=== PATIENT | male | born 1935 | race Caucasian/White ===

== ENCOUNTER 2018-03-31 11:55 | Inpatient (IN) | payer OTHER, MEDICAID ==
[~2018-03-31] VITALS: Ht 170.2 cm; Wt 67.6 kg
[2018-03-31 11:56] VITALS: BP 146/83
[2018-03-31] MEDS ORDERED: LISI5TAB18 PO (12:15)
[2018-03-31] MEDS ORDERED: MULT1SGL58 PO (12:15)
[2018-03-31] MEDS ORDERED: ACET-2619 PO (12:15)
[2018-03-31] MEDS ORDERED: AMLO10TA PO (12:15)
[2018-03-31] MEDS ORDERED: DOCU-299 PO (12:15)
[2018-03-31] MEDS ORDERED: MAGN400S60 PO (12:15)
[2018-03-31] MEDS ORDERED: ATOR40TA PO (12:15)
[2018-03-31] MEDS ORDERED: VITB12 PO (12:15)
[2018-03-31] MEDS ORDERED: CLOP75TA55 PO (12:15)
[2018-03-31] MEDS ORDERED: NACL 0.9% 1,000 ML IV ONE (12:33)
[2018-03-31] MEDS ORDERED: VANCOMYCIN 1,000 MG in DEXTROSE 5% 250 ML IV ONE (12:35)
[2018-03-31] MEDS ORDERED: MEROPENEM 1,000 MG in NACL 0.9% 100 ML IV ONE (12:35)
[2018-03-31] MEDS ORDERED: MEROPENEM 1,000 MG VIAL IV ONE (13:39)
[2018-03-31 13:45] LABS: BASOPHILS # (AUTO) 0.1 K/uL (0.00-0.22); BASOPHILS % (AUTO) 0.4 % (0.0-2.0); EOSINOPHILS % (AUTO) 0.1 % (0.0-4.0); HEMATOCRIT 49.1 % (36-52); HEMOGLOBIN 16.1 g/dL (12.0-18.0); LYMPHOCYTES # (AUTO) 0.9 K/uL (2.0-11.5); LYMPHOCYTES % (AUTO) 6.5 % (20.5-51.1); MEAN CORPUSCULAR HEMOGLOBIN 30 pg (27-31); MEAN CORPUSCULAR HGB CONC 33 g/dL (33-37); MEAN CORPUSCULAR VOLUME 90.5 fL (80-94); MONOCYTES # (AUTO) 1.4 K/uL (0.8-1.0); MONOCYTES % (AUTO) 9.5 % (1.7-9.3); NEUTROPHILS # (AUTO) 12.1 K/uL (1.8-7.7); NEUTROPHILS % (AUTO) 83.5 % (42.2-75.2); PLATELET COUNT (AUTO) 221 K/uL (140-450); RED BLOOD CELL COUNT(AUTO) 5.42 MIL/uL (4.20-6.10); RED CELL DISTRIBUTION WIDTH 15.1 % (11.6-13.7); WHITE BLOOD COUNT (AUTO) 14.4 K/uL (4.8-10.8)
[2018-03-31 13:53] LABS: ANION GAP 12.8 (8-16); CARBON DIOXIDE 29.8 mmol/L (21-32); CHLORIDE 100 mmol/L (98-107); CREATININE 1.7 mg/dL (0.7-1.3); GLUCOSE 129 mg/dL (74-106); POTASSIUM 4.6 mmol/L (3.5-5.1); SODIUM SERUM 138 mmol/L (136-145); UREA NITROGEN, BLOOD 29 mg/dL (7-18)
[2018-03-31 13:58] LABS: PROTHROMBIN TIME 9.8 secs (10.8-13.4)
[2018-03-31 13:59] LABS: ASPARTATE AMINOTRANSFERASE 24 U/L (15-37)
[2018-03-31 14:01] LABS: APPEARANCE,URINE HAZY (CLEAR); BILIRUBIN,URINE NEGATIVE (NEGATIVE); BLOOD, URINE NEGATIVE (NEGATIVE); COLOR,URINE YELLOW (YELLOW); LEUKOCYTE ESTERASE ,URINE TRACE (NEGATIVE); NITRITE, URINE NEGATIVE (NEGATIVE); UGLUCOSE NEGATIVE (NEGATIVE)
[2018-03-31] MEDS ORDERED: NACL 0.9% 1,000 ML IV SCH (14:22)
[2018-03-31] MEDS ORDERED: ACETAMINOPHEN 325 MG TAB PO PRN (14:25)
[2018-03-31] MEDS ORDERED: ONDANSETRON 4 MG/2 ML VIAL IVP PRN (14:25)
[2018-03-31] MEDS ORDERED: HYDROcodone/APAP 7.5/325 MG 1 TAB PO PRN (14:25)
[2018-03-31] MEDS ORDERED: VANCOMYCIN 1,000 MG VIAL ONE (14:32)
[2018-03-31 14:51] LABS: RBC,URINE 3-10 (FEW) /HPF (0-5); WBC,URINE 20-60 /HPF (0-5)
[2018-03-31 15:14] LABS: CHOL/HDL RATIO 2.6 (1-4.5); FREE T4 (FREE THYROXINE) 1.05 ng/dL (0.76-1.46); MAGNESIUM 2.4 mg/dL (1.8-2.4); PHOSPHORUS 3.3 mg/dL (2.5-4.9); THYROID STIMULATING HORMONE 3.41 uIU/mL (0.34-3.74)
[2018-03-31] MEDS ORDERED: SODIUM PHOSPHATE 118 ML ENEM RC PRN (15:40)
[2018-03-31 16:00] VITALS: BP 138/78
[2018-03-31 20:00] VITALS: BP 124/75
[2018-03-31] MEDS ORDERED: LORazepam 2 MG/ML VIAL IVP SCH (20:00)
[2018-03-31] MEDS: PIPER/TAZO 3.375GM/D5W PREMIX 50 ML IV SCH (20:45)
[2018-03-31] MEDS: DOCUSATE SODIUM 100 MG GELCAP PO SCH (20:46)
[2018-03-31] MEDS ORDERED: PIPERACILLIN/TAZOBACTAM 3.375 GM in DEXTROSE 5% 50 ML IV SCH (21:00)
[2018-04-01] VITALS: BP 124/67
[2018-04-01 04:00] VITALS: BP 126/85
[2018-04-01] MEDS: PIPER/TAZO 3.375GM/D5W PREMIX 50 ML IV SCH (04:58)
[2018-04-01 07:32] LABS: BASOPHILS # (AUTO) 0.1 K/uL (0.00-0.22); BASOPHILS % (AUTO) 0.3 % (0.0-2.0); HEMATOCRIT 45.3 % (36-52); HEMOGLOBIN 14.7 g/dL (12.0-18.0); LYMPHOCYTES # (AUTO) 0.5 K/uL (2.0-11.5); LYMPHOCYTES % (AUTO) 1.8 % (20.5-51.1); MEAN CORPUSCULAR HEMOGLOBIN 30 pg (27-31); MEAN CORPUSCULAR HGB CONC 33 g/dL (33-37); MEAN CORPUSCULAR VOLUME 90.8 fL (80-94); MONOCYTES # (AUTO) 1.3 K/uL (0.8-1.0); MONOCYTES % (AUTO) 4.8 % (1.7-9.3); NEUTROPHILS # (AUTO) 24.5 K/uL (1.8-7.7); NEUTROPHILS % (AUTO) 93.1 % (42.2-75.2); PLATELET COUNT (AUTO) 178 K/uL (140-450); RED CELL DISTRIBUTION WIDTH 14.6 % (11.6-13.7)
[2018-04-01 08:00] VITALS: BP 125/82
[2018-04-01 08:02] LABS: WHITE BLOOD COUNT (AUTO) 26.3 K/uL (4.8-10.8)
[2018-04-01 08:07] LABS: ANION GAP 12.8 (8-16); CHLORIDE 101 mmol/L (98-107); CREATININE 1.6 mg/dL (0.7-1.3); GLUCOSE 162 mg/dL (74-106); POTASSIUM 3.8 mmol/L (3.5-5.1); SODIUM SERUM 139 mmol/L (136-145); UREA NITROGEN, BLOOD 39 mg/dL (7-18)
[2018-04-01] MEDS ORDERED: ATORVASTATIN 20 MG TAB PO SCH (09:00)
[2018-04-01] MEDS ORDERED: amLODIPine 5 MG TAB PO SCH (09:00)
[2018-04-01] MEDS ORDERED: LISINOPRIL 5 MG TAB PO SCH (09:00)
[2018-04-01] MEDS ORDERED: PANTOPRAZOLE 40 MG INJ VIAL IVP SCH (09:00)
[2018-04-01] MEDS ORDERED: DEXT 5% /NACL 0.9% 1,000 ML IV SCH (09:15)
[2018-04-01] MEDS: DOCUSATE SODIUM 100 MG GELCAP PO SCH (09:38)
[2018-04-01 11:01] LABS: MAGNESIUM 2.3 mg/dL (1.8-2.4); PHOSPHORUS 3.3 mg/dL (2.5-4.9)
[2018-04-01] MEDS ORDERED: INSULIN LISPRO SLIDING SCALE 100 UNITS/ML VIAL SUBQ PRN (11:25)
[2018-04-01] MEDS ORDERED: DEXTROSE 50% 50 ML SYR IVP PRN (11:25)
[2018-04-01] MEDS ORDERED: BLOOD GLUCOSE MONITORING 1 DEV DEV FS SCH (11:30)
[2018-04-01 12:00] VITALS: BP 107/58
[2018-04-01] MEDS ORDERED: ONDA2SOL45 IVP (12:04)
[2018-04-01] MEDS ORDERED: DOCU-299 PO (12:04)
[2018-04-01] MEDS ORDERED: D50SYR IVP (12:04)
[2018-04-01] MEDS ORDERED: ACET-1182 PO (12:04)
[2018-04-01] MEDS ORDERED: MULT-405 PO (12:04)
[2018-04-01] MEDS ORDERED: ACET-9529 PO (12:04)
[2018-04-01] MEDS ORDERED: GLUC-805 FS (12:04)
[2018-04-01] MEDS ORDERED: HUMSLIDE SUBQ (12:04)
[2018-04-01] MEDS ORDERED: PANT40PD7 IVP (12:04)
[2018-04-01] MEDS ORDERED: ASCO1CAP75 PO (12:27)
[2018-04-01] MEDS ORDERED: PIPE50SO5 IV (12:27)
[2018-04-01] MEDS ORDERED: PIPER/TAZO 2.25GM/D5W PREMIX 50 ML IV SCH (13:00)
[2018-04-01 13:01] VITALS: BP 107/58
[2018-04-02] MEDS ORDERED: MULTIVITAMIN 1 TAB PO SCH (09:00)
[2018-04-02] MEDS ORDERED: NON-FORMULARY ITEM (Multivitamin (Multivitamins) 1 CAP) PO SCH (09:00)
== END 2018-04-01 14:54 | disposition short-term general hospital (02) | DRG 871 ==
LOC: MED 11:55 → MTU 14:22
PROVIDERS: ADMIT General Practice; ATTEND General Practice
DX: A41.9 Sepsis, unspecified organism (principal); J96.01 Acute respiratory failure with hypoxia; I21.A1 Myocardial infarction type 2; N17.0 Acute kidney failure with tubular necrosis; J69.0 Pneumonitis due to inhalation of food and vomit; K40.30 Unilateral inguinal hernia, with obstruction, without gangrene, not specified as recurrent; N39.0 Urinary tract infection, site not specified; I24.9 Acute ischemic heart disease, unspecified; K56.609 Unspecified intestinal obstruction, unspecified as to partial versus complete obstruction; I10 Essential (primary) hypertension; I25.10 Atherosclerotic heart disease of native coronary artery without angina pectoris; E78.5 Hyperlipidemia, unspecified; F17.210 Nicotine dependence, cigarettes, uncomplicated; K80.20 Calculus of gallbladder without cholecystitis without obstruction; N28.1 Cyst of kidney, acquired; R91.1 Solitary pulmonary nodule; I48.91 Unspecified atrial fibrillation; E86.0 Dehydration; Z79.02 Long term (current) use of antithrombotics/antiplatelets; Z79.899 Other long term (current) drug therapy; Z95.1 Presence of aortocoronary bypass graft; Z98.1 Arthrodesis status; Z95.810 Presence of automatic (implantable) cardiac defibrillator; Z86.73 Personal history of transient ischemic attack (TIA), and cerebral infarction without residual deficits; Z99.3 Dependence on wheelchair; R73.03 Prediabetes
CPT/HCPCS: 36415; 71045; 80048; 80053; 81001; 82150; 82948; 83036; 83605; 83690; 83735; 83880; 84100; 84439; 84443; 84484; 85025; 85610; 85730; 86886; 86900; 86901; 87040; 87070; 87081; 87086; 87205; 93005; 96365; 96367; 99291; C9113; J1815; J2060; J2185; J2543; J3370; J7030; J7042; Q0092

== ENCOUNTER 2018-05-02 13:41 | Emergency (ER) | payer OTHER, MEDICAID ==
[~2018-05-02] VITALS: Ht 170.2 cm; Wt 68.0 kg
[~2018-05-02 13:41] MED LIST: ACET-1182 PO; ACET-2619 PO; ACET-9529 PO; AMLO10TA PO; ASCO1CAP75 PO; ATOR40TA PO; CYAN100T65 PO; D50SYR IVP; DOCU-299 PO; GLUC-805 FS; HUMSLIDE SUBQ; LISI5TAB18 PO; MAGN400S60 PO; MULT-405 PO; MULT1SGL58 PO; ONDA2SOL45 IVP; PANT40PD7 IVP; PIPE50SO5 IV
--- NOTE | 2018-05-02 13:42 | NUR ---
BRENDAN YOON, CURRENTLY AWAITING BED
--- NOTE | 2018-05-02 13:43 | NUR ---
PT TAKEN TO BED 2 BY EMS CREW
[2018-05-02 13:45] VITALS: BP 131/60
--- NOTE | 2018-05-02 13:50 | NUR ---
82 Y/O M BIB EMS [place] [facility] [facility] WITH C/O ABDOMINAL PAIN X 3 DAYS. PER PT NO ABDOMINAL PAIN AT THIS TIME JUST FEELING "GASSY." PT DENIES N/V/D; AAOX4, PERRL; LUNGS CLEAR BL, BREATHING UNLABORED; HR EVEN AND REGULAR, BL PERIPHERAL PULSES PRESENT; BS ACTIVE X4, NO TENDERNESS TO PALPATION, NO HEPATOSPLENOMEGALLY PALPATED, RESONANT TO PERCUSSION; PT DENIES ANY FEVER, CP, SOB, OR COUGH AT THIS TIME; PT STATES 0/10 PAIN AT THIS TIME; VSS; PATIENT POSITIONED FOR COMFORT; HOB ELEVATED; BEDRAILS UP X2; BED DOWN. HX; HERNIA REPAIR 3 WEEKS AGO AT [place], PACEMAKER, TRIPLE BYPASS, HTN RX; AMIODORONE, AMLOPIDINE, ATORVASTATIN
--- NOTE | 2018-05-02 14:21 | NUR ---
PT RE-POSISITIONED FOR COMFORT.
[2018-05-02] MEDS ORDERED: DICYCLOMINE HCL LIQUID 20 MG, ALUMINUM HYD/MAG/SIMETHICONE 30 ML, LIDOCAINE VISCOUS 2% ... PO ONE ×3 (15:50)
--- NOTE | 2018-05-02 16:33 | NUR ---
CALLING FOR TRANSPORTATION AT THIS TIME PER DR. LOPES ORDERS
--- NOTE | 2018-05-02 16:37 | NUR ---
PT SCREAMING FOR TISSUES AT THIS TIME. TISSUES PROVIDED.
--- NOTE | 2018-05-02 16:40 | NUR ---
PT SCREAMING BECAUSE HE CAN'T FIND CALL LIGHT. CALL LIGHT RIGHT NEXT TO PT UPON ASSESSMENT.
--- NOTE | 2018-05-02 16:50 | NUR ---
DESIGN INTERN TIME IS 8 PM PER PREMIRE.
--- NOTE | 2018-05-02 17:12 | NUR ---
CALLED [facility] TO TELL THEM WE WILL BE BRINING BACK A PT TO FACILITY.
[2018-05-02 17:13] VITALS: BP 125/59
--- NOTE | 2018-05-02 17:14 | NUR ---
PER TRIP INSIDE SALES SUPERVISOR NURSE OKAY TO WHEELCHAIR PT BACK TO FACILITY. BED IS NEEDED AT THIS TIME. SECURITY WILL ESCORT.
--- NOTE | 2018-05-02 17:14 | NUR ---
Patient discharged with v/s stable. Written and verbal after care instructions given and explained. Patient alert, oriented and verbalized understanding of instructions. Ambulatory with steady gait. All questions addressed prior to discharge. ID band removed. Patient advised to follow up with PMD. Rx of PRILOSEC, MOTRIN given. Patient educated on indication of medication including possible reaction and side effects. Opportunity to ask questions provided and answered.
== END 2018-05-02 17:14 | disposition home or self-care (01) ==
LOC: MED 13:41
DX: K21.9 Gastro-esophageal reflux disease without esophagitis (principal); I10 Essential (primary) hypertension; F17.210 Nicotine dependence, cigarettes, uncomplicated; Z86.73 Personal history of transient ischemic attack (TIA), and cerebral infarction without residual deficits; Z95.0 Presence of cardiac pacemaker; Z95.1 Presence of aortocoronary bypass graft; Z98.890 Other specified postprocedural states; Z79.1 Long term (current) use of non-steroidal anti-inflammatories (NSAID); Z79.891 Long term (current) use of opiate analgesic; Z79.899 Other long term (current) drug therapy; Z79.4 Long term (current) use of insulin
CPT/HCPCS: 99283

== ENCOUNTER 2018-11-19 18:20 | Emergency (ER) | payer OTHER, MEDICAID ==
[~2018-11-19] VITALS: Ht 170.2 cm; Wt 63.5 kg
--- NOTE | 2018-11-19 18:20 | NUR ---
PT BIBA BLS TO ER BED 02
[2018-11-19 18:25] VITALS: BP 101/49
--- NOTE | 2018-11-19 18:31 | NUR ---
BIB [facility] FROM [facility] W/ C/O DIARRHEA X 3 DAYS W/ LOSS OF APETITE. DENIES NVD OR DIZZINESS. HX; HTN, STROKE 3 YRS AGO W/ LT LLE WEAKNESS, CAD, ARTHEROSCLEROSIS. RX; LISINOPRIL, AMIODARON, ATORVASTATON, CLOPIDOGREL
--- NOTE | 2018-11-19 19:16 | NUR ---
REPORT GIVEN TO PM RN AT BEDSIDE. PT SATBLE.
[2018-11-19 19:20] LABS: HEMATOCRIT 36.9 % (36-52); HEMOGLOBIN 12.3 g/dL (12.0-18.0); MEAN CORPUSCULAR HEMOGLOBIN 29 pg (27-31); MEAN CORPUSCULAR HGB CONC 33 g/dL (33-37); MEAN CORPUSCULAR VOLUME 87.1 fL (80-94); PLATELET COUNT (AUTO) 213 K/uL (140-450); RED BLOOD CELL COUNT(AUTO) 4.23 MIL/uL (4.20-6.10); RED CELL DISTRIBUTION WIDTH 17.8 % (11.6-13.7); WHITE BLOOD COUNT (AUTO) 10.5 K/uL (4.8-10.8)
[2018-11-19 19:35] LABS: LYMPHOCYTES % (MANUAL) 3 % (20-46); MONOCYTES % (MANUAL) 2 % (5-12)
--- NOTE | 2018-11-19 19:45 | NUR ---
PT NAIN-AREA CLEAN AND DRY. STOOL SAMPLE COLLECTED.
[2018-11-19 19:50] LABS: ALBUMIN 2.7 g/dL (3.4-5.0); ANION GAP 13.9 (8-16); ASPARTATE AMINOTRANSFERASE 58 U/L (15-37); CARBON DIOXIDE 24.2 mmol/L (21-32); CHLORIDE 102 mmol/L (98-107); CREATININE 2.5 mg/dL (0.7-1.3); GLUCOSE 132 mg/dL (74-106); LIPASE 51 U/L (73-393); POTASSIUM 3.1 mmol/L (3.5-5.1); SODIUM SERUM 137 mmol/L (136-145); TOTAL BILIRUBIN 0.5 mg/dL (0.0-1.0); UREA NITROGEN, BLOOD 38 mg/dL (7-18)
[2018-11-19] MEDS ORDERED: POTASSIUM CHLORIDE 10 MEQ TABER PO ONE (19:55)
--- NOTE | 2018-11-19 20:30 | NUR ---
PT REPOSITIONED FOR COMFORT. VSS. WILL CONTINUE TO MONITOR.
--- NOTE | 2018-11-19 21:15 | NUR ---
PT RESTING IN BED COMFORTABLY, EASILY ARROUSABLE. VSS. WILL CONTINUE TO MONITOR.
--- NOTE | 2018-11-19 22:15 | NUR ---
PT RESTING IN BED COMFORTABLY WITH EYES CLOSED. VSS. WILL CONTINUE TO MONITOR.
--- NOTE | 2018-11-19 23:00 | NUR ---
OFFERED PT WATER. VSS. WILL CONTINUE TO MONITOR.
--- NOTE | 2018-11-19 23:44 | NUR ---
CALLED SON TO SEE IF HE CAN LIVESTOCK HAULIER, SON STATED HE IS UNABLE TO LIVESTOCK HAULIER.
--- NOTE | 2018-11-20 00:25 | NUR ---
SON OF PT STATED HE WILL MANUFACTURING COST ESTIMATOR PT, ETA IS 45 MIN.
--- NOTE | 2018-11-20 00:58 | NUR ---
Patient discharged with v/s stable. Written and verbal after care instructions given and explained. Patient alert, oriented and verbalized understanding of instructions. Wheel Chair Assisted with to car. All questions addressed prior to discharge. ID band removed. Patient advised to follow up with PMD. Rx of lomotil was given. Patient educated on indication of medication including possible reaction and side effects. Opportunity to ask questions provided and answered.
--- NOTE | 2018-11-20 00:58 | NUR ---
Son at bedside to pickling solution maker pt
--- NOTE | 2018-11-20 00:58 | NUR ---
pt tayla area clean and dry. repositioned for comfort.
[2018-11-20 01:02] VITALS: BP 96/52
--- NOTE | 2018-11-20 01:10 | NUR ---
Called Oswaldo June to confirm pt return. Call back number .
--- NOTE | 2018-11-22 17:00 | NUR ---
POSITIVE SALMONELLA GROWTH RECEIVED FROM LAB--- NOTIFIED, HE SPOKE WITH PT'S PMD PT'S PMD WITH IMPLEMENT INTERVENTION
[2018-11-23] MEDS ORDERED: LOTC TP (14:08)
[2018-11-23] MEDS ORDERED: CIPR500T4 PO (14:08)
[2018-11-23] MEDS ORDERED: RANI-745 PO (14:08)
[2018-11-23] MEDS ORDERED: IMO2 PO (14:08)
[2018-11-23] MEDS ORDERED: AMIO200T5 PO (14:08)
[2018-11-23] MEDS ORDERED: CLOP75TA55 PO (14:08)
[2018-11-23] MEDS ORDERED: LACT1TAB38 PO (14:08)
== END 2018-11-20 00:50 | disposition home or self-care (01) ==
LOC: MED 18:20
DX: R19.7 Diarrhea, unspecified (principal); R53.1 Weakness; R63.0 Anorexia; I10 Essential (primary) hypertension; Z79.4 Long term (current) use of insulin; Z79.899 Other long term (current) drug therapy; Z79.1 Long term (current) use of non-steroidal anti-inflammatories (NSAID); Z86.73 Personal history of transient ischemic attack (TIA), and cerebral infarction without residual deficits; Z95.0 Presence of cardiac pacemaker; Z86.79 Personal history of other diseases of the circulatory system
CPT/HCPCS: 36415; 80053; 83690; 85025; 87045; 87186; 89055; 99283

== ENCOUNTER 2019-02-05 07:55 | Emergency (ER) | payer OTHER, MEDICAID ==
[~2019-02-05] VITALS: Ht 185.4 cm; Wt 60.3 kg
[~2019-02-05 07:55] MED LIST changes: -ACET-1182 PO; -ACET-9529 PO; +AMIO200T5 PO; -ATOR40TA PO; +CIPR500T4 PO; +CLOP75TA55 PO; -CYAN100T65 PO; -D50SYR IVP; +DEXT50SO52 IV; -DOCU-299 PO; -GLUC-805 FS; -HUMSLIDE SUBQ; +IMO2 PO; +LISI2.5T12 PO; -LISI5TAB18 PO; +LOTC TP; -MAGN400S60 PO; -MULT1SGL58 PO; -ONDA2SOL45 IVP; -PANT40PD7 IVP; -PIPE50SO5 IV; +RANI-745 PO
--- NOTE | 2019-02-05 07:55 | NUR ---
PT BIBA BLS TO ER BED 04
[2019-02-05 07:59] VITALS: BP 133/57
[2019-02-05] MEDS ORDERED: TETRACAINE HCL/PF 0.5% OPTH 4 ML BTL ONE (08:06)
[2019-02-05] MEDS ORDERED: TETRACAINE HCL/PF 0.5% OPTH 4 ML BTL OP ONE (08:10)
--- NOTE | 2019-02-05 08:10 | NUR ---
PATIENT COMPLAINS OF RIGHT EYE PAIN 9/ X 1 DAY. DENIES DISCHARGE, NO SWELLING NOTED, VISIBLY RED, DENIES VISUAL CHANGES. RIGHT EYE 27/70, LEFT EYE 20/100, BOTH EYES 20/100. PATIENT IS ALERT AND AWAKE. VS STABLE. BED IS IN LOWEST POSITION, LOCKED, BED RAIL X 1. ERMD TO SEE PATIENT.
--- NOTE | 2019-02-05 08:13 | NUR ---
CALLED PHARMACY FOR TETRACAINE, INFORMED PHARMACY THAT WE WILL HIGHWAY TECHNICIAN MEDICATION
[2019-02-05] MEDS ORDERED: FLUORESCEIN OPTH STRIP 1 MG ONE (08:18)
--- NOTE | 2019-02-05 08:39 | NUR ---
DOCTOR FOWER AT BEDSIDE
--- NOTE | 2019-02-05 08:56 | NUR ---
CARDIAC DIET PLACED AT BEDSIDE FOR PT
--- NOTE | 2019-02-05 09:05 | NUR ---
HOB ELEVATED FOR PT TO EAT, MEAL CUT INTO BITE SIZE PIECES
[2019-02-05] MEDS ORDERED: ERYTHROMYCIN 0.5% OPTH OINT 1 GM TUBE OP ONE (09:10)
--- NOTE | 2019-02-05 09:19 | NUR ---
ETA FOR CASIMIRO TERRACE UTILITY SPRAY OPERATOR IS APPROX 1000
--- NOTE | 2019-02-05 09:28 | NUR ---
CALLED PHARMACY ERYTHROMYCIN, STATES THEY WILL BRING MEDICATION
--- NOTE | 2019-02-05 09:41 | NUR ---
PT SLEEPING AT THIS TIME. JORDANR
--- NOTE | 2019-02-05 09:56 | NUR ---
PT WOKEN TO ADMINISTER ERYTHROMYCIN. PT TOLERATED WELL
[2019-02-05 10:16] VITALS: BP 106/57
--- NOTE | 2019-02-05 10:16 | NUR ---
Patient discharged with v/s stable. Written and verbal after care instructions given and explained TO PATIENT AND TRANSPORT TEAM. Patient verbalized understanding. Wheel Chair Assisted BY TRANSPORT to [facility], [facility]. All questions addressed prior to discharge. Advised to follow up with [facility].
== END 2019-02-05 10:16 | disposition home or self-care (01) ==
LOC: MED 07:55
DX: T15.91XA Foreign body on external eye, part unspecified, right eye, initial encounter (principal); I10 Essential (primary) hypertension; Z86.73 Personal history of transient ischemic attack (TIA), and cerebral infarction without residual deficits; Z95.0 Presence of cardiac pacemaker; Z79.899 Other long term (current) drug therapy; X58.XXXA Exposure to other specified factors, initial encounter; Y93.89 Activity, other specified; Y92.89 Other specified places as the place of occurrence of the external cause; Y99.8 Other external cause status
CPT/HCPCS: 65205; 99284

== ENCOUNTER 2019-02-27 02:41 | Inpatient (IN) | payer OTHER, MEDICAID ==
[~2019-02-27] VITALS: Ht 170.2 cm; Wt 63.5 kg
--- NOTE | 2019-02-27 02:45 | NUR ---
PT TAKEN TO BED #9 VIA [facility]ONG
[2019-02-27 02:48] VITALS: BP 150/66
--- NOTE | 2019-02-27 02:50 | NUR ---
PT O2 SATURATION DROPPED TO 77% ON RA. PT PLACED ON NON-REBREATHER MASK AT 15L. PT O2 SATURATION MAINTAINED AT 100%
[2019-02-27] MEDS ORDERED: NACL 0.9% 1,800 ML IV ONE (02:51)
--- NOTE | 2019-02-27 02:51 | NUR ---
83 Y/O MALE PRESENTS TO ED WITH C/O SOB THAT STARTED 3 DAYS AGO. PATIENT HAS PRODUCTIVE COUGH WITH GREEN SPUTUM WITH WORSENING SYMPTOMS STARTING TODAY. HE WAS BROUGHT IN WITH NASAL CANNULA AT 4LPM AND SATURATIONS IN 90'S. DENIES PAIN. LUNG SOUNDS RHONCHI. SIDERAILS UP x2, CONNECTED TO MONITOR WITH PACED RHYTHM, ALL OTHER VITAL SIGNS WITHIN NORMAL LIMITS. WILL CONTINUE TO MONITOR.
[2019-02-27] MEDS ORDERED: MEROPENEM 1,000 MG in NACL 0.9% 100 ML IV ONE (02:55)
[2019-02-27] MEDS ORDERED: VANCOMYCIN 1,000 MG in DEXTROSE 5% 250 ML IV ONE (02:55)
[2019-02-27 03:12] LABS: EOSINOPHILS # (AUTO) 0.1 K/uL (0-0.4)
[2019-02-27 03:17] LABS: BASOPHILS % (AUTO) 0.3 % (0.0-2.0); EOSINOPHILS % (AUTO) 0.5 % (0.0-4.0); HEMATOCRIT 35.3 % (36-52); HEMOGLOBIN 11.2 g/dL (12.0-18.0); MEAN CORPUSCULAR HEMOGLOBIN 28 pg (27-31); MEAN CORPUSCULAR HGB CONC 32 g/dL (33-37); MEAN CORPUSCULAR VOLUME 87.7 fL (80-94); MONOCYTES # (AUTO) 1.3 K/uL (0.8-1.0); MONOCYTES % (AUTO) 11.5 % (1.7-9.3); NEUTROPHILS # (AUTO) 8.9 K/uL (1.8-7.7); PLATELET COUNT (AUTO) 264 K/uL (140-450); RED BLOOD CELL COUNT(AUTO) 4.03 MIL/uL (4.20-6.10); WHITE BLOOD COUNT (AUTO) 11.2 K/uL (4.8-10.8)
[2019-02-27] MEDS ORDERED: VANCOMYCIN 1,000 MG VIAL ONE (03:17)
[2019-02-27] MEDS ORDERED: MEROPENEM 1,000 MG VIAL IV ONE ×2 (03:17)
[2019-02-27 03:29] LABS: LYMPHOCYTES % (AUTO) 8.7 % (20.5-51.1)
[2019-02-27 03:30] LABS: ANION GAP 12.6 (8-16); ASPARTATE AMINOTRANSFERASE 31 U/L (15-37); CARBON DIOXIDE 27.6 mmol/L (21-32); CHLORIDE 106 mmol/L (98-107); CREATININE 1.5 mg/dL (0.7-1.3); GLUCOSE 109 mg/dL (74-106); POTASSIUM 4.2 mmol/L (3.5-5.1); SODIUM SERUM 142 mmol/L (136-145); TOTAL BILIRUBIN 0.7 mg/dL (0.0-1.0); UREA NITROGEN, BLOOD 25 mg/dL (7-18)
--- NOTE | 2019-02-27 03:30 | NUR ---
EKG PERFORMED AT BEDSIDE
[2019-02-27 03:32] LABS: PROTHROMBIN TIME 11.2 secs (10.8-13.4)
--- NOTE | 2019-02-27 03:38 | NUR ---
PT UNABLE TO PROVIDE URINE SPECIMEN AT THIS TIME. DR. ASHFORD MADE AWARE. NO NEW ORDERS AT THIS TIME.
--- NOTE | 2019-02-27 03:55 | NUR ---
PATIENT IN BED WITH NONREBREATHER MASK, RESTING COMFORTABLY, SATURATIONS ABOVE 94%, BREATHING IS UNLABORED. WILL CONTINUE TO MONITOR.
--- NOTE | 2019-02-27 04:30 | NUR ---
RESIDENT MD AT BEDSIDE TO ASSESS PATIENT.
--- NOTE | 2019-02-27 04:34 | NUR ---
URINE SPECIMEN COLLECTED AND TAKEN TO LAB
[2019-02-27] MEDS ORDERED: ONDANSETRON 4 MG/2 ML VIAL IM/IVP PRN (04:40)
[2019-02-27] MEDS ORDERED: VANCOMYCIN PER PHARMACY MC PRN (04:40)
[2019-02-27] MEDS ORDERED: DOCUSATE SODIUM 100 MG GELCAP PO PRN (04:40)
[2019-02-27] MEDS ORDERED: ALBUTEROL SULFATE/IPRATROPIU 3 ML SOL IH PRN (04:40)
[2019-02-27] MEDS ORDERED: ACETAMINOPHEN 325 MG TAB PO PRN (04:40)
[2019-02-27 04:45] LABS: APPEARANCE,URINE CLEAR (CLEAR); BILIRUBIN,URINE 1+ (NEGATIVE); BLOOD, URINE NEGATIVE (NEGATIVE); COLOR,URINE YELLOW (YELLOW); LEUKOCYTE ESTERASE ,URINE TRACE (NEGATIVE); NITRITE, URINE NEGATIVE (NEGATIVE); PH,URINE 5.5 (5.0-9.0); UGLUCOSE NEGATIVE (NEGATIVE)
--- NOTE | 2019-02-27 05:08 | NUR ---
PT REPOSITIONED FOR COMFORT. BEDRAILS X2 UP. WILL CONTINUE TO MONITOR.
[2019-02-27] MEDS ORDERED: PRED10TA5 PO (05:15)
[2019-02-27] MEDS ORDERED: DOCU-299 PO (05:15)
[2019-02-27] MEDS ORDERED: ASCO500T45 PO (05:15)
[2019-02-27] MEDS ORDERED: MULT-153 PO (05:15)
[2019-02-27] MEDS ORDERED: CLOP75TA55 PO (05:15)
[2019-02-27] MEDS ORDERED: FLUO40CA PO (05:15)
[2019-02-27] MEDS ORDERED: FAMO-90 PO (05:15)
[2019-02-27] MEDS ORDERED: ZINC220C12 PO (05:15)
[2019-02-27] MEDS ORDERED: FURO-572 PO (05:15)
[2019-02-27] MEDS ORDERED: IPRA3AMP2 IH (05:15)
[2019-02-27 05:24] LABS: RBC,URINE 0-5 /HPF (0-5); WBC,URINE 0-5 /HPF (0-5)
--- NOTE | 2019-02-27 05:27 | NUR ---
PATIENT REQUESTING COUGH MEDICATIONS, STATES HE IS HAVING A HARD TIME BREATHING. ER MD MADE AWARE, WILL CARRY OUT NEW ORDERS. PATIENT REPOSITIONED AND SAT UP RIGHT, NONREBREATHER MASK IN PLACE TO 15LPM, ASSISTED PATIENT WITH BLOWING NOSE AND CLEARING THROAT. WILL CONTINUE TO MONITOR.
[2019-02-27] MEDS ORDERED: ACETAMIN/CODEINE 120/12MG-5ML 5 ML UDC PO ONE (05:30)
--- NOTE | 2019-02-27 05:54 | NUR ---
PATIENT STILL COMPLAINING OF DIFFICULTY OF BREATHING, MEDICATIONS GIVEN WITH NO RELIEF, PATIENT REPOSITIONED TWICE AND SAT UPRIGHT, ALSO ATTEMPTED TO CLEAN AND CLEAR NOSE. ER MD MADE AWARE, BREATHING TREATMENT ORDERED WITH SUCTION. WILL CARRY OUT.
--- NOTE | 2019-02-27 05:56 | NUR ---
RT's AT BEDSIDE.
[2019-02-27] MEDS ORDERED: ALBUTEROL SULFATE/IPRATROPIU 3 ML SOL IH ONE (06:00)
--- NOTE | 2019-02-27 06:10 | NUR ---
RECD. FROM ER VIA GURNEY, AWAKE, A/OX3, RESPIRATION EVEN AND UNLABORED. NOTED CRACKLES ON BILATERAL LUNG AUSCULTATION, PATIENT DESATURATES TO THE 80s WHEN OFF 02. WITH ON AND OFF PRODUCTIVE COUGHING, GREENISH PHLEGM. SATURATING 97% ON 15 LITERS NON RE-BREATHER MASK. PATIENT IS BEDBOUND, ON DIAPER. SKIN IS INTACT. APPEARS WEAK, NO APPEARANCE OF PAIN NOTED 0/10. WITH PACEMAKER, PACING AT 94 ON TELE MONITORING.
--- NOTE | 2019-02-27 06:18 | NUR ---
Patient will be admitted to care of . Admitted to [facility]. Will go to room 123B. Belongings list completed AND INITIALED BY 2 RN's. Report to BRENT NASSAR. PATIENT TRANSFERRED VIA GURNEY WITH NONREBREATHER MASK AT 15 LPM, ALL OTHER VITAL SIGNS STABLE.
[2019-02-27] MEDS ORDERED: PIPERACILLIN/TAZOBACTAM 3.375 GM in DEXTROSE 5% 50 ML IV SCH (06:30)
--- NOTE | 2019-02-27 06:35 | NUR ---
RT CAME CHANGE 02 TO 6 LITERS , VENT MASK AT 30% TO KEEP 02 SAT GREATER 92%. BREATHING TREATMENT GIVEN BY RT. WILL ENDORSE TO AM SHIFT NURSE FOR ADMISSION AND CONTINUITY OF CARE.
[2019-02-27] MEDS: ALBUTEROL SULFATE/IPRATROPIU 3 ML SOL IH SCH ×3 (06:41→20:33)
--- NOTE | 2019-02-27 07:38 | NUR ---
RECEIVED PT FROM AFTERNOON NANNY RN FOR CONTINUITY OF CARE. PT IS AAOX3, RESPIRATION EVEN AND MINIMALLY LABORED ON VENTURI MASK 6L/30% O2. NOTED CRACKLES ON BILATERAL LUNG DURING AUSCULTATION. PT DOES NOT TOLERATED RA AT THIS TIME. PT HAS INTERMITTENT PRODUCTIVE COUGH. SATURATING 94%. PATIENT IS BEDBOUND AND INCONTINENT. SKIN IS INTACT. APPEARS WEAK, NO APPEARANCE OF PAIN NOTED 0/10. WITH PACEMAKER IMPLANTED. EXPLAINED POC TO PT AND PT VERBALIZED UNDERSTANDING. ALL NEEDS EMT. WILL CONTINUE TO ROUND FREQUENTLY ON PT. BED IN LOW POSITION, CALL LIGHT WITHIN REACH.
[2019-02-27 08:00] VITALS: BP 128/59
--- NOTE | 2019-02-27 08:24 | NUR ---
PT O2 SAT IN THE LOW 80'S/ RT WAS CALLED. RT ATTEMPTED TO SUCTION PT BUT WAS UNABLE. RT DECIDED TO PLACE PT ON BIPAP. PT NOW SATING 93-95% ON BIPAP 60% O2. PER RT, PT WILL BE TITRATED DOWN TOLERATED. PT SHOWING NO SIGNS OF DISTRESS, CYANOSIS, OR DIAPHORESIS. WILL ROUND FREQUENTLY ON PT. BED IN LOW POSITION, CALL LIGHT WITHIN REACH.
--- NOTE | 2019-02-27 08:29 | NUR ---
PATIENT HAS BEEN SCREENED AND CATEGORIZED MODERATE NUTRITION RISK. PATIENT WILL BE SEEN WITHIN 3-5 DAYS OF ADMISSION. 03/01/19 03/03/[address]
[2019-02-27] MEDS: DOCUSATE SODIUM 100 MG GELCAP PO SCH (09:00)
[2019-02-27] MEDS ORDERED: predniSONE 10 MG TAB PO SCH (09:00)
[2019-02-27] MEDS ORDERED: FLUOXETINE HCL 40 MG PO SCH (09:00)
--- NOTE | 2019-02-27 09:20 | NUR ---
DISCHARGE PLANNING: CONTACTED [facility] AT [phone], ABLE TO SPEAK TO AMMON ([facility]) INQUIRING ABOUT THE ART GALLERY DIRECTOR ASSIGNED TO THIS PATIENT. SHE STATED RAINA AT [phone], GOT TRANSFERRED TO THE PROVIDED NUMBER. NO ANSWER. LEFT MESSAGE. Addendum: 02/27/19 at 1609 by Carmen Estrada CM CONTACTED TEETEE PARIS AT [phone], UPDATED HER OF THE PATIENT'S CONDITION. SHE STATED SHE WILL UPDATE HER TEAM THAT THEIR NO DC PLAN FOR THIS PATIENT. Addendum: 02/28/19 at 1613 by Jodie Goins CM DC PLANNING: CONTINUE IV ABX WITH VANCO AND MEROPENEM, BIPAP AT NIGHT , PT EVAL AND DC PLAN TO SNF FOR PT FAXED TO SVETA KINGSLEY TO FOLLOW Addendum: 03/01/19 at 1033 by Jodie Goins CM DC PLANNING PER MD ORDER TO DC TO SNF ,CALLED [facility]ETA PARIS AT [phone] TO GET THE AUTHORIZATION TO THE CONTRACTED [facility], AND FAXED TO [facility] , [facility] AND [facility]. RECEIVED A CALL FROM [facility] IS ACCEPTING PATIENT AND WAITING FOR AUTHORIZATION. CM TO FOLLOW Addendum: 03/01/19 at 1421 by Jodie Goins CM DC PLANNING VITO FROM [facility] VISITED PATIENT AND DISCUSSED WITH THE ISSUE HE HAD BEFORE WITH THEM AND [facility] REFUSED TO ACCEPT PT. [facility] ACCEPTED PATIENT BUT PT STATED ITS TO FAR AND WANTED TO GO TO [facility]. STILL WAITING FROM [facility] FOR THE AUTHORIZATION. TEETEE TO FOLLOW Addendum: 03/01/19 at 1439 by Jodie Goins CM DC PLANNING RECEIVED A CALL FROM RAINA KINGSLEY AT [employer] PROVIDED AUTHORIZATION [phone] FOR [facility] AND TRANSPORT WITH [facility]. PT CAN GO TO ROOM 25A # TO GIVE REPORT [phone] AND ARRANGED TRANSPORT WITH [facility] POST TENSIONING IRONWORKER TIME 6PM NOTIFIED JUANA LINARES Addendum: 03/03/19 at 1015 by Jodie Goins CM DC PLANNING CALLED [facility] SPOKE WITH CORNELIUS PT IS GOING TO SAME ROOM 25A AND NOTIFIED HER POST TENSIONING IRONWORKER TIME 11AM BY .
[2019-02-27 10:14] LABS: MAGNESIUM 2.2 mg/dL (1.8-2.4); PHOSPHORUS 3.5 mg/dL (2.5-4.9); THYROID STIMULATING HORMONE 20.03 uIU/mL (0.34-3.74)
[2019-02-27] MEDS: FLUoxetine 20 MG CAP PO SCH (10:17)
[2019-02-27] MEDS: ZINC SULF 220 MG CAP PO SCH (10:17)
[2019-02-27] MEDS: amLODIPine 5 MG TAB PO SCH (10:17)
[2019-02-27] MEDS: FAMOTIDINE 20 MG TAB PO SCH (10:18)
[2019-02-27] MEDS: MULTIVITAMIN 1 TAB PO SCH (10:18)
[2019-02-27] MEDS: LISINOPRIL 5 MG TAB PO SCH (10:18)
[2019-02-27] MEDS: LACTOBACILLUS RHAMNOSUS GG 1 EACH CAP PO SCH (10:18)
[2019-02-27] MEDS: FUROSEMIDE 20 MG TAB PO SCH (10:19)
[2019-02-27] MEDS: ASCORBIC ACID 500 MG TAB PO SCH (10:19)
[2019-02-27] MEDS: CLOPIDOGREL 75 MG TAB PO SCH (10:19)
[2019-02-27] MEDS: NACL 0.9% 1,000 ML IV SCH (10:20)
--- NOTE | 2019-02-27 10:21 | NUR ---
ADMINISTERED MORNING MEDS TO PT. PT TOLERATED WELL. ALL NEEDS CURRENTLY MET. WILL CONTINUE TO ROUND FREQUENTLY ON PT. O2 SAT @ 95 ON BIPAP 60%. BED IN LOW POSITION, CALL LIGHT WITHIN REACH.
[2019-02-27 12:00] VITALS: BP 122/52
--- NOTE | 2019-02-27 12:04 | NUR ---
PT SLEEPINGI N BED. ALL NEEDS MET. WILL CONTINUE TO ROUND FREQUENTLY ON PT. BED IN LOW POSITION, CALL LIGHT WITHIN REACH.
[2019-02-27] MEDS: PIPERACILLIN/TAZOBACTAM 3.375 GM in DEXTROSE 5% 50 ML IV SCH ×2 (12:59→18:20)
[2019-02-27] MEDS: methylPREDNISolone SS 40 MG/ML VIAL IVP SCH ×2 (13:01→21:12)
--- NOTE | 2019-02-27 14:25 | NUR ---
PT SLEEPING. PT WAS PLACED ON A HIGH FLOW NC. PT NEW SETTING ARE: 40L/50% O2 SATING 91-93%. NO DISTRESS NOTED. WILL CONTINUE TO ROUND FREQUENTLY ON PT. BED IN LOW POSITION, CALL LIGHT WITHIN REACH.
--- NOTE | 2019-02-27 14:42 | NUR ---
PT OFF BIPAP AND PLACED ON HIGH FLOW NC AT 40 L AT 50% O2 SAT IS 91% WILL CONTINUE TO MONITOR PT VIJAY GILMORE NOTIFIED OF CHANGES MADE
[2019-02-27 16:00] VITALS: BP 123/58
--- NOTE | 2019-02-27 16:45 | NUR ---
PT RESTING IN BED. ALL NEEDS MET. WILL CONTINUE TO ROUND FREQUENTLY ON PT. BED IN LOW POSITION, CALL LIGHT WITHIN REACH.
--- NOTE | 2019-02-27 18:46 | NUR ---
PT RESTING IN BED WATCHING TV. FAMILY HAD DINNER AND ATE WELL. ALL NEEDS MET.
--- NOTE | 2019-02-27 19:31 | NUR ---
ENDORSED PT TO COMMUNICATIONS ASSISTANT FOR CONTINUITY OF CARE. PT IN STABLE CONDITION AT THIS TIME.
--- NOTE | 2019-02-27 19:31 | NUR ---
RECIEVED PT AAOX4 , IV SITES INTACT AND PATENT , ON HIGH FLOW /NC AT 4OL . 50% O2 , WITH INTERMITENT PRODUCTIVE COUGH WITH LIGHT GREEN SPUTUM , AFEBRILE , ON CROZE CUTTER HELPER , WITH PACEMAKER . DENIES ANY PAIN ,WITH LEFT SIDED DEFICIT - HX OFCVA - ON CROZE CUTTER HELPER - FEEDER , ON HOOK ON O2 SAT CONTINOUSLY - O2 SAT WNL . PLAN OF CARE DISCUSSED AND VERBALIZE UNDERSTANDING CALL LIGHT WITHIN REACH . ON SAFETY PRECAUTION PROTOCOL, NO SIGNS OF DISTRESS NOTED AT THIS TIME . WILL CONT. TO MONITOR.
[2019-02-27 20:00] VITALS: BP 120/79
--- NOTE | 2019-02-27 22:00 | NUR ---
MADE ROUNDS ON BI PAP AT 50% O2 - TOLERATED WELL . NO COMPLAIN MADE AT THIS TIME . O2 SAT WNL , NO SIGN OF ACUTE DISTRESS NOTED AT THIS TIME , CALL LIGHT WITHIN REACH . WILL CONT . TO MONITOR.
--- NOTE | 2019-02-27 22:49 | NUR ---
FLU SWAB COLLECTED AND SENT TO LAB.
--- NOTE | 2019-02-27 23:10 | NUR ---
REPORTED TO DR. GUO THE LATEST TROPONIN LEVEL - TRENDING DOWN - NO FURTHER ORDERS MADE.
[2019-02-28] VITALS: BP 120/62
--- NOTE | 2019-02-28 | NUR ---
ON BI PAPA - TOLERATED WELL , 02 SAT WNL NO S/S OF ACUTE DISTRESS NOTED AT THIS TIME , WILL CONT TO MONITOR . CALL LIGHT WITHIN REACH Addendum: 02/28/19 at 0156 by Catherine Nelson RN THE WORD BI PAPA ON NURSE'S NOTE ENTRY IS TYPOGRAHPICALLY ERROR - INSTEAD BI PAP - AMINTA
[2019-02-28] MEDS: PIPERACILLIN/TAZOBACTAM 3.375 GM in DEXTROSE 5% 50 ML IV SCH ×5 (00:42→23:05)
--- NOTE | 2019-02-28 01:56 | NUR ---
MADE ROUNDS - PT REQUESTING TO REMOVE THE BI PAP - HESAID HE WANTS TO SLEEP COMFORTABLY - CALLING RT ON DUTY ABOUT PT'S REQUEST.
--- NOTE | 2019-02-28 02:29 | NUR ---
CALLED BY RN DUE TO PT REQUEST TO BE PLACED OFF BIPAP. PT COMPLAINED ABOUT TROUBLE BREATHING. I GAVE PT A BREATHING TX AND PT FELT MUCH BETTER. PT SAID HES UNCOMFORTABLE ON BIPAP SO I PLACED HIM ON A HIGH FLOW NC 40L @50%. PT IS DOING WELL SAT 94%.
[2019-02-28 04:00] VITALS: BP 117/62
[2019-02-28] MEDS: NACL 0.9% 1,000 ML IV SCH (04:38)
--- NOTE | 2019-02-28 05:25 | NUR ---
REFUSED FOR BLOOD DRAW - FOR LAB EXAM- INFORMED TAMAR.
[2019-02-28] MEDS: methylPREDNISolone SS 40 MG/ML VIAL IVP SCH ×3 (05:27→20:04)
[2019-02-28] MEDS: VANCOMYCIN 1,000 MG in DEXTROSE 5% 250 ML IV SCH (05:28)
[2019-02-28] MEDS: LEVOTHYROXINE 0.025 MG TAB PO SCH (06:44)
[2019-02-28] MEDS: ALBUTEROL SULFATE/IPRATROPIU 3 ML SOL IH SCH ×3 (06:47→19:53)
--- NOTE | 2019-02-28 07:10 | NUR ---
ENDORSED TO AM SHIFT WITH STABLE CONDITION . LATEST O2 SAT 96%
--- NOTE | 2019-02-28 07:10 | NUR ---
RECEIVED REPORT FROM INBOUND SALES MANAGER NURSE ASHOK. PT AAOX4, NO C/O PAIN AT THIS TIME. IV ON LT AC 20 GA AND RT FA 22 GA RUNNING IVF PER ORDER. RESPIRATIONS EVEN AND UNLABORED ON O2 50% VIA HI JUSTICE. ABD SOFT, ACTIVE BS. SKIN IS INTACT, WARM TO TOUCH. PT IS BEDBOUND, SAFETY MEASURES IN PLACE, CALL LIGHT WITHIN REACH.
[2019-02-28 08:00] VITALS: BP 111/63
--- NOTE | 2019-02-28 08:00 | NUR ---
PT HAS NO SIGNS OF RESPIRATORY DISTRESS, ON O2 HIGH FLOW NC 40L @ 50%.
[2019-02-28] MEDS: FUROSEMIDE 20 MG TAB PO SCH (08:06)
[2019-02-28 08:07] LABS: FOLIC ACID 10.7 ng/mL (>3.0)
[2019-02-28] MEDS: CLOPIDOGREL 75 MG TAB PO SCH (08:07)
[2019-02-28] MEDS: amLODIPine 5 MG TAB PO SCH (08:08)
[2019-02-28] MEDS: LACTOBACILLUS RHAMNOSUS GG 1 EACH CAP PO SCH (08:09)
[2019-02-28] MEDS: MULTIVITAMIN 1 TAB PO SCH (08:09)
[2019-02-28] MEDS: ASCORBIC ACID 500 MG TAB PO SCH (08:09)
[2019-02-28] MEDS: FLUoxetine 20 MG CAP PO SCH (08:10)
[2019-02-28] MEDS: FAMOTIDINE 20 MG TAB PO SCH (08:11)
--- NOTE | 2019-02-28 08:13 | NUR ---
ADMINISTERED MEDICATIONS PER ORDER, PT IS AWARE AND VERBALIZED UNDERSTANDING OF INDICATIONS AND POTENTIAL SIDE EFFECTS OF EACH MEDICATION.
[2019-02-28] MEDS: DOCUSATE SODIUM 100 MG GELCAP PO SCH (08:15)
[2019-02-28] MEDS: LISINOPRIL 5 MG TAB PO SCH (08:15)
[2019-02-28] MEDS: ZINC SULF 220 MG CAP PO SCH (08:16)
--- NOTE | 2019-02-28 09:50 | NUR ---
PT GIVEN SKIN CARE AND CLEANED FACE PER REQUEST. PT HAS NO S/S OF DISTRESS OR C/O PAIN AT THIS TIME.
[2019-02-28] MEDS: LORATADINE 10 MG TAB PO SCH (09:51)
--- NOTE | 2019-02-28 11:49 | NUR ---
PT ON O2 4L VIA N/C, O2 SAT 94%, PT IS RESTING IN BED AND SHOWS NO SIGNS OF RESPIRATORY DISTRESS.
--- NOTE | 2019-02-28 13:19 | NUR ---
PLACED PT ON 4L OXYMIZER SPO2 95 PT DEFERS HF 02 AND BIPAP AT THIS TIME. SPUTUM CUP LEFT
--- NOTE | 2019-02-28 14:00 | NUR ---
LINENS CHANGED AND GIVEN PT CLEAN GOWN. SKIN AND NAIN CARE PROVIDED. SKIN IS INTACT.
[2019-02-28 16:00] VITALS: BP 105/53
--- NOTE | 2019-02-28 16:00 | NUR ---
PT RESPIRATIONS EVEN AND UNLABORED ON O2 4L VIA OXYMIZER, O2 SAT 93%, NO S/S OF RESPIRATORY DISTRESS.
--- NOTE | 2019-02-28 17:16 | NUR ---
ADMINISTERED ZOSYN PER ORDER, REVIEWED INDICATION AND POTENTIAL SIDE EFFECTS WITH PT AND FAMILY MEMBERS. GIVEN UPDATE ON PT'S CONDITIONS, ALL QUESTIONS ANSWERED AND CLARIFIED.
--- NOTE | 2019-02-28 19:25 | NUR ---
ENDORSED PT TO PARKING ENFORCER NURSE KIERAN. PT HAS NO SIGNS OF DISTRESS AT THIS TIME.
--- NOTE | 2019-02-28 19:26 | NUR ---
REPORT RECEIVED FROM AM NURSE AT BEDSIDE. PT IN STABLE CONDITION. AAOX4. INTRODUCED SELF TO PT. BOARD UPDATED. NO COMPLAINTS OF PAIN. NO SOB ON 5L O2 VIA OXYMIZER. AFEBRILE. PT IS AMBULATORY WITH ASSIST. IV SITE L AC 20G RUNNING NS@20ML/HR PATENT AND INTACT. SKIN WARM, DRY, AND INTACT WITH NO OPEN WOUNDS. BED LOCKED IN LOW POSITION. CALL ANTONIO WITHIN REACH. SAFETY PRECAUTION IN PLACE. ALL NEEDS MET AT THIS TIME.
--- NOTE | 2019-02-28 20:01 | NUR ---
BREATHING TX GIVEN. PLACED PT BACK ON 4 LITERS OXYMIZER
--- NOTE | 2019-02-28 20:04 | NUR ---
SOLUMEDROL GIVEN IVP. HEPARIN GIVEN SUBQ. PT TOLERATED WELL.
--- NOTE | 2019-02-28 21:45 | NUR ---
PT TRYING TO SLEEP. NO S/S OF DISTRESS NOTED. WILL CONTINUE TO MONITOR.
--- NOTE | 2019-02-28 23:05 | NUR ---
ADELIA HUNG AND RUNNING. PT TOLERATING WELL.
[2019-02-28] MEDS: MELATONIN 3 MG TAB PO PRN (23:42)
--- NOTE | 2019-02-28 23:42 | NUR ---
MELATONIN GIVEN FOR SLEEPLESSNESS. PT TOLERATED WELL.
[2019-03-01] VITALS: BP 96/57
--- NOTE | 2019-03-01 02:15 | NUR ---
PT SLEEPING COMFORTABLY BUT AROUSABLE. NO S/S OF DISTRESS NOTED. WILL CONTINUE TO MONITOR.
[2019-03-01] MEDS: VANCOMYCIN 1,000 MG in DEXTROSE 5% 250 ML IV SCH (04:05)
--- NOTE | 2019-03-01 04:05 | NUR ---
DALIA PECK AND RUNNING. PT TOLERATING WELL.
[2019-03-01] MEDS: NACL 0.9% 1,000 ML IV SCH (04:12)
[2019-03-01] MEDS: PIPERACILLIN/TAZOBACTAM 3.375 GM in DEXTROSE 5% 50 ML IV SCH ×4 (05:47→23:02)
[2019-03-01] MEDS: LEVOTHYROXINE 0.025 MG TAB PO SCH (05:47)
[2019-03-01] MEDS: methylPREDNISolone SS 40 MG/ML VIAL IVP SCH ×2 (05:47→20:05)
--- NOTE | 2019-03-01 05:47 | NUR ---
SOLUMEDROL GIVEN IVP. ZOSYN HUNG AND RUNNING. SYNTHROID GIVEN PO. PT TOLERATED WELL.
--- NOTE | 2019-03-01 06:45 | NUR ---
PT SLEEPING COMFORTABLY BUT AROUSABLE. PT IN STABLE CONDITION.
--- NOTE | 2019-03-01 07:16 | NUR ---
RECEIVED REPORT FROM PRESS BOX CUSTODIAN NURSE, PATIENT IN STABLE CONDITION. WILL CONTINUE TO MONITOR.
[2019-03-01] MEDS: ALBUTEROL SULFATE/IPRATROPIU 3 ML SOL IH SCH ×3 (07:30→20:24)
[2019-03-01 08:00] VITALS: BP_SYST 112; BP_SYST 145; BP_DIAS 94
[2019-03-01] MEDS: amLODIPine 5 MG TAB PO SCH (09:00)
[2019-03-01] MEDS: LISINOPRIL 5 MG TAB PO SCH (09:00)
[2019-03-01] MEDS: FLUoxetine 20 MG CAP PO SCH (09:05)
[2019-03-01] MEDS: LORATADINE 10 MG TAB PO SCH (09:05)
[2019-03-01] MEDS: MULTIVITAMIN 1 TAB PO SCH (09:05)
[2019-03-01] MEDS: CLOPIDOGREL 75 MG TAB PO SCH (09:06)
[2019-03-01] MEDS: FUROSEMIDE 20 MG TAB PO SCH (09:06)
[2019-03-01] MEDS: ASCORBIC ACID 500 MG TAB PO SCH (09:06)
[2019-03-01] MEDS: LACTOBACILLUS RHAMNOSUS GG 1 EACH CAP PO SCH (09:07)
[2019-03-01] MEDS: ZINC SULF 220 MG CAP PO SCH (09:08)
[2019-03-01] MEDS: DOCUSATE SODIUM 100 MG GELCAP PO SCH ×2 (09:08→09:09)
[2019-03-01] MEDS: FAMOTIDINE 20 MG TAB PO SCH (09:09)
[2019-03-01 11:49] LABS: CHOL/HDL RATIO 2.7 (1-4.5)
[2019-03-01] MEDS ORDERED: methylPREDNISolone SS 40 MG/ML VIAL IVP SCH (13:00)
--- NOTE | 2019-03-01 13:57 | NUR ---
SATURATION 95% ON SUPPLEMENTAL OXYGEN AT 4 LPM VOA OXYMIZER POST HHN THERAPY TITRATED FIO2 TO 3 LPM OMID//RN NOTIFIED
--- NOTE | 2019-03-01 14:15 | NUR ---
03/01/19 RD INITIAL ASSESSMENT COMPLETED PLEASE REFER TO NUTRITION ASSESSMENT UNDER CARE ACTIVITY FOR ESTIMATED NUTRITIONAL NEEDS. 1. CONTINUE CARDIAC, MECHANICAL SOFT DIET TOLERATED 2. PATIENT DECLINED NUTRITION EDUCATION FOR HTN AND GENERAL HEALTHY EATING 3. RD TO FOLLOW-UP 5-7 DAYS, LOW RISK CESAR WEINER RD
[2019-03-01 16:00] VITALS: BP 105/54
--- NOTE | 2019-03-01 19:30 | NUR ---
ENDORSED TO GLORY HOLE TENDER NURSE. PATIENT IS IN STABLE CONDITION.
--- NOTE | 2019-03-01 19:31 | NUR ---
REPORT RECEIVED FROM AM NURSE AT BEDSIDE. PT IN STABLE CONDITION. AAOX4. INTRODUCED SELF TO PT. BOARD UPDATED. NO COMPLAINTS OF PAIN. NO SOB ON 5L OXYMIZER. AFEBRILE. PT IS BEDBOUND. IV SITE L AC 20G RUNNING NS@20ML/HR PATENT AND INTACT. SKIN WARM, DRY, AND INTACT WITH NO OPEN WOUNDS. BED LOCKED IN LOW POSITION. CALL ANTONIO WITHIN REACH. SAFETY PRECAUTION IN PLACE. ALL NEEDS MET AT THIS TIME.
--- NOTE | 2019-03-01 20:05 | NUR ---
SOLUMEDROL GIVEN IVP. HEPARIN GIVEN SUBQ. PT TOLERATED WELL.
--- NOTE | 2019-03-01 22:15 | NUR ---
PT SLEEPING COMFORTABLY BUT AROUSABLE. NO S/S OF DISTRESS NOTED. WILL CONTINUE TO MONITOR.
[2019-03-01] MEDS: MELATONIN 3 MG TAB PO PRN (22:50)
--- NOTE | 2019-03-01 22:50 | NUR ---
MELATONIN GIVEN FOR SLEEPLESSNESS. PT TOLERATED WELL.
--- NOTE | 2019-03-01 23:02 | NUR ---
ADELIA HUNG AND RUNNING. PT TOLERATING WELL.
[2019-03-02] VITALS: BP 103/59
--- NOTE | 2019-03-02 01:00 | NUR ---
PT SLEEPING COMFORTABLY BUT AROUSABLE. NO S/S OF DISTRESS NOTED. RESPIRATIONS EVEN, UNLABORED, AND WNL. WILL CONTINUE TO MONITOR.
--- NOTE | 2019-03-02 02:40 | NUR ---
PT SLEEPING COMFORTABLY BUT AROUSABLE. NO S/S OF DISTRESS NOTED. NO COMPLAINTS OF PAIN. NO SOB. AFEBRILE. WILL CONTINUE TO MONITOR.
[2019-03-02] MEDS: NACL 0.9% 1,000 ML IV SCH (04:06)
[2019-03-02] MEDS: VANCOMYCIN 1,000 MG in DEXTROSE 5% 250 ML IV SCH (04:06)
[2019-03-02] MEDS: LEVOTHYROXINE 0.025 MG TAB PO SCH (05:37)
[2019-03-02] MEDS: PIPERACILLIN/TAZOBACTAM 3.375 GM in DEXTROSE 5% 50 ML IV SCH ×3 (05:37→17:09)
--- NOTE | 2019-03-02 05:37 | NUR ---
ZOSYN HUNG AND RUNNING. SYNTHROID GIVEN PO. PT TOLERATED WELL.
[2019-03-02] MEDS ORDERED: PNEUMOCOCCAL VACCINE 23 MCG/0.5 ML VIAL IMVAC SCH (06:20)
[2019-03-02] MEDS ORDERED: INFLUENZA VACCINE QUAD 0.5 ML SYR IMVAC PRN (06:20)
--- NOTE | 2019-03-02 06:35 | NUR ---
PT SLEEPING COMFORTABLY BUT AROUSABLE. PT IN STABLE CONDITION.
--- NOTE | 2019-03-02 07:05 | NUR ---
RECEIVED REPORT FROM NIGHT NURSE. PT IN BED WITH EYES CLOSED, AROUSABLE TO SPEECH, AAOX4. RESPIRATIONS EVEN AND UNLABORED ON ROOM AIR, COARSE/RONCHI BREATH SOUNDS. IV IN PLACE PATENT AND ASYMPTOMATIC SALINE LOCKED IN L AC 20G. SKIN INTACT. DENIES PAIN AT THIS TIME. BED IN LOW POSITION, SAFETY MEASURES IN PLACE. CALL LIGHT WITHIN REACH. WILL CONTINUE TO MONITOR.
[2019-03-02 07:47] LABS: HEMOGLOBIN 10.9 g/dL (12.0-18.0); RED CELL DISTRIBUTION WIDTH 16.9 % (11.6-13.7); WHITE BLOOD COUNT (AUTO) 17.7 K/uL (4.8-10.8)
[2019-03-02] MEDS: ALBUTEROL SULFATE/IPRATROPIU 3 ML SOL IH SCH ×3 (07:50→19:02)
[2019-03-02 08:00] VITALS: BP 104/66
[2019-03-02 08:06] LABS: ANION GAP 15.6 (8-16); CHLORIDE 105 mmol/L (98-107); CREATININE 1.7 mg/dL (0.7-1.3); GLUCOSE 158 mg/dL (74-106); HEMATOCRIT 34.5 % (36-52); MEAN CORPUSCULAR HEMOGLOBIN 28 pg (27-31); MEAN CORPUSCULAR HGB CONC 32 g/dL (33-37); MEAN CORPUSCULAR VOLUME 88.4 fL (80-94); PLATELET COUNT (AUTO) 232 K/uL (140-450); POTASSIUM 4.6 mmol/L (3.5-5.1); RED BLOOD CELL COUNT(AUTO) 3.91 MIL/uL (4.20-6.10); SODIUM SERUM 141 mmol/L (136-145); UREA NITROGEN, BLOOD 40 mg/dL (7-18)
[2019-03-02] MEDS: LACTOBACILLUS RHAMNOSUS GG 1 EACH CAP PO SCH (08:22)
[2019-03-02] MEDS: MULTIVITAMIN 1 TAB PO SCH (08:22)
[2019-03-02] MEDS: ZINC SULF 220 MG CAP PO SCH (08:22)
[2019-03-02] MEDS: ASCORBIC ACID 500 MG TAB PO SCH ×2 (08:22→17:25)
[2019-03-02] MEDS: DOCUSATE SODIUM 100 MG GELCAP PO SCH ×2 (08:22→08:33)
[2019-03-02] MEDS: LORATADINE 10 MG TAB PO SCH (08:23)
[2019-03-02] MEDS: FUROSEMIDE 20 MG TAB PO SCH (08:23)
[2019-03-02] MEDS: FAMOTIDINE 20 MG TAB PO SCH (08:24)
[2019-03-02] MEDS: FLUoxetine 20 MG CAP PO SCH (08:24)
[2019-03-02] MEDS: LISINOPRIL 5 MG TAB PO SCH (08:24)
[2019-03-02] MEDS: amLODIPine 5 MG TAB PO SCH (08:24)
[2019-03-02] MEDS: CLOPIDOGREL 75 MG TAB PO SCH (08:25)
[2019-03-02] MEDS: methylPREDNISolone SS 40 MG/ML VIAL IVP SCH (08:25)
--- NOTE | 2019-03-02 08:35 | NUR ---
MEDICATIONS ADMINISTERED PER ORDER. PT TOLERATED WELL. NO DISTRESS NOTED. SAFETY MEASURES IN PLACE. CALL LIGHT WITHIN REACH. WILL CONTINUE TO MONITOR.
[2019-03-02 08:48] LABS: LYMPHOCYTES % (MANUAL) 2 % (20-46); MONOCYTES % (MANUAL) 7 % (5-12)
[2019-03-02] MEDS ORDERED: FUROSEMIDE 20 MG/2 ML VIAL IVP SCH (10:00)
--- NOTE | 2019-03-02 10:14 | NUR ---
MEDICATIONS ADMINISTERED PER ORDER. PT TOLERATED WELL. NO DISTRESS NOTED. WILL CONTINUE TO MONITOR.
--- NOTE | 2019-03-02 12:35 | NUR ---
MEDICATIONS ADMINISTERED PER ORDER. PT TOLERATED WELL. NO DISTRESS NOTED. SAFETY MEASURES IN PLACE. WILL CONTINUE TO MONITOR.
--- NOTE | 2019-03-02 14:19 | NUR ---
PT IN BED SLEEPING. NO DISTRESS NOTED. SAFETY MEASURES IN PLACE. CALL LIGHT WITHIN REACH. WILL CONTINUE TO MONITOR.
[2019-03-02 16:00] VITALS: BP 103/46
--- NOTE | 2019-03-02 16:49 | NUR ---
VITAL SIGNS MONITORED AT THIS TIME. MEDICATIONS ADMINISTERED PER ORDER. PT TOLERATED WELL, NO DISTRESS NOTED, DENIES PAIN. WILL CONTINUE TO MONITOR.
[2019-03-02] MEDS: FERROUS SULFATE 325 MG TABEC PO SCH (17:25)
--- NOTE | 2019-03-02 19:20 | NUR ---
REPORT GIVEN TO NIGHT NURSE FOR CONTINUITY OF CARE.
--- NOTE | 2019-03-02 19:21 | NUR ---
RECEIVED REPORT FROM AM SHIFT NURSE. NO APPARENT DISTRESS NOTED. ALERT AND ORIENTED X 4. WITH IVF ON LEFT AC 20G. WILL CONTINJUE TO MONITOR.
[2019-03-02] MEDS: MELATONIN 3 MG TAB PO PRN (20:45)
--- NOTE | 2019-03-02 21:18 | NUR ---
PATIENT ASLEEP IN BED. NO APPARENT DISTRESS NOTED. VISIBLE CHEST RISE AND FALL NOTED.
--- NOTE | 2019-03-02 23:15 | NUR ---
ROUNDS DONE. PATIENT ASLEEP IN BED. NO APPARENT DISTRESS NOTED. WILL CONTINUE TO MONITOR.
[2019-03-03] VITALS: BP 114/53
[2019-03-03] MEDS: PIPERACILLIN/TAZOBACTAM 3.375 GM in DEXTROSE 5% 50 ML IV SCH ×2 (00:28→06:01)
--- NOTE | 2019-03-03 01:10 | NUR ---
PATIENT ASLEEP IN BED. BED IN LOW POSITION. CALL LIGHT WITHIN REACH. WILL CONTINUE TO MONITOR.
--- NOTE | 2019-03-03 02:40 | NUR ---
PATIENT ASLEEP IN BED. NO APPARENT DISTRESS NOTED. WILL CONTINUE TO MONITOR.
[2019-03-03] MEDS: NACL 0.9% 1,000 ML IV SCH (04:17)
--- NOTE | 2019-03-03 04:35 | NUR ---
PATIENT ASLEEP IN BED. VISIBLE CHEST RISE AND FALL NOTED. NO APPARENT DISTRESS NOTED. WILL CONTINUE TO MONITOR.
[2019-03-03] MEDS: LEVOTHYROXINE 0.025 MG TAB PO SCH (06:01)
--- NOTE | 2019-03-03 06:30 | NUR ---
PATIENT ASLEEP IN BED. NO APPARENT DISTRESS NOTED. WILL CONTINUE TO MONITOR.
--- NOTE | 2019-03-03 07:05 | NUR ---
ENDORSED TO AM SHIFT NURSE FOR CONTINUITY OF CARE.
--- NOTE | 2019-03-03 07:20 | NUR ---
RECEIVED BEDSIDE REPORT FROM HOG GRADER NURSE. PT IS AWAKE AND ALERT, NO S/S OF ACUTE DISTRESS NO SOB NOTED. PT IS ON 3L O2 NC. IV SITE L AC 20 G, INFUSING NS 10 ML/HR. FALL PRECAUTIONS IN PLACE. CALL LIGHT IS WITHIN REACH. PLAN TO DC PATIENT TO [facility] TODAY FOR CONTINUED IV ABX.
[2019-03-03] MEDS ORDERED: LORA10TA19 PO (07:40)
[2019-03-03] MEDS ORDERED: ZOS3.375I IV (07:40)
[2019-03-03] MEDS ORDERED: FER325 PO (07:40)
[2019-03-03] MEDS ORDERED: LACT10CA PO (07:40)
[2019-03-03] MEDS ORDERED: PRED10TA5 PO (07:40)
[2019-03-03] MEDS: ALBUTEROL SULFATE/IPRATROPIU 3 ML SOL IH SCH (07:42)
[2019-03-03 08:00] VITALS: BP 109/61
--- NOTE | 2019-03-03 08:32 | NUR ---
PT IS REFUSING TO HAVE A PICC LINE INSERTED FOR IV ABX. DR MC IS AWARE
[2019-03-03] MEDS: LORATADINE 10 MG TAB PO SCH (08:52)
[2019-03-03] MEDS: FERROUS SULFATE 325 MG TABEC PO SCH (08:53)
[2019-03-03] MEDS: FLUoxetine 20 MG CAP PO SCH (08:53)
[2019-03-03] MEDS: FAMOTIDINE 20 MG TAB PO SCH (08:53)
[2019-03-03] MEDS: CLOPIDOGREL 75 MG TAB PO SCH (08:53)
[2019-03-03] MEDS: LACTOBACILLUS RHAMNOSUS GG 1 EACH CAP PO SCH (08:53)
[2019-03-03] MEDS: FUROSEMIDE 20 MG TAB PO SCH (08:53)
[2019-03-03] MEDS: MULTIVITAMIN 1 TAB PO SCH (08:53)
[2019-03-03] MEDS: amLODIPine 5 MG TAB PO SCH (08:53)
[2019-03-03] MEDS: DOCUSATE SODIUM 100 MG GELCAP PO SCH ×2 (08:53)
[2019-03-03] MEDS: ASCORBIC ACID 500 MG TAB PO SCH ×2 (08:53)
[2019-03-03] MEDS: ZINC SULF 220 MG CAP PO SCH (08:54)
[2019-03-03] MEDS: LISINOPRIL 5 MG TAB PO SCH (08:54)
[2019-03-03] MEDS ORDERED: methylPREDNISolone SS 40 MG/ML VIAL IVP SCH (09:00)
--- NOTE | 2019-03-03 09:08 | NUR ---
AM MEDS ADMINISTERED. PT TOLERATED WELL. PT REFUSED SUBQ HEPARIN, STATES THAT HE WAS GIVEN TOO MUCH HEPARIN AT ANOTHER FACILITY BEFORE, AND IT MADE HIM BLEED.
--- NOTE | 2019-03-03 10:02 | NUR ---
GAVE PHONE REPORT TO VIJAY RAE, AT [facility].
--- NOTE | 2019-03-03 10:58 | NUR ---
FLU VACCINE ADMINISTERED ORDERED. PT DECLINED THE PNA VACCINE.
--- NOTE | 2019-03-03 11:45 | NUR ---
PT HAS TRANSFERRED TO [facility]. PT'S SON IS HERE AND IS AWARE OF THE TRANSFER. IV MAINTAINED FOR IV ABX THERAPY AT THE [facility]. WRIST BAND REMOVED. PT LEFT WITH ALL HIS BELONGINGS IN STABLE CONDITION. FLU VACCINE GIVEN UPON DC.
== END 2019-03-03 11:45 | DRG 177 ==
LOC: MED 02:41 → MTU 05:43
PROVIDERS: ADMIT General Practice; ATTEND General Practice
PROC: 5A09357 Assistance with Respiratory Ventilation, Less than 24 Consecutive Hours, Continuous Positive Airway Pressure (ICD-10-PCS; principal; 2019-02-27)
DX: J69.0 Pneumonitis due to inhalation of food and vomit (principal); J96.01 Acute respiratory failure with hypoxia; I21.A1 Myocardial infarction type 2; N17.0 Acute kidney failure with tubular necrosis; E43 Unspecified severe protein-calorie malnutrition; J96.21 Acute and chronic respiratory failure with hypoxia; J44.0 Chronic obstructive pulmonary disease with (acute) lower respiratory infection; I69.354 Hemiplegia and hemiparesis following cerebral infarction affecting left non-dominant side; J44.1 Chronic obstructive pulmonary disease with (acute) exacerbation; D64.9 Anemia, unspecified; F32.9 Major depressive disorder, single episode, unspecified; I11.0 Hypertensive heart disease with heart failure; I25.10 Atherosclerotic heart disease of native coronary artery without angina pectoris; I50.9 Heart failure, unspecified; K21.9 Gastro-esophageal reflux disease without esophagitis; K59.00 Constipation, unspecified; K80.20 Calculus of gallbladder without cholecystitis without obstruction; E03.9 Hypothyroidism, unspecified; D72.829 Elevated white blood cell count, unspecified; Z87.891 Personal history of nicotine dependence; Z95.0 Presence of cardiac pacemaker; Z95.1 Presence of aortocoronary bypass graft; Z68.21 Body mass index [BMI] 21.0-21.9, adult
CPT/HCPCS: 36415; 36600; 71045; 76604; 80048; 80053; 80202; 81001; 82607; 82728; 82746; 82803; 83036; 83540; 83605; 83735; 83880; 84100; 84439; 84443; 84484; 85025; 85045; 85610; 85730; 87040; 87070; 87081; 87086; 87205; 87804; 89220; 93005; 94640; 94660; 94667; 96361; 96365; 96366; 96367; 97110; 97112; 97161-GP; 97530; 99291; J1644; J1940; J2185; J2543; J2920; J3370; J7030; J7060; J7512; J7620; Q0092